=== PATIENT | male | born 1955 | race Caucasian/White ===

== ENCOUNTER 2018-10-23 14:37 | Outpatient (CLI) | payer OTHER ==
--- NOTE | 2018-10-23 15:44 | RAD ---
PA AND LATERAL CHEST: INDICATIONS: History of cough. COMPARISON: 05/03/2005 FINDINGS: The cardiac silhouette remains at the upper limits of normal. No definite air space consolidation or pleural effusion is evident. No acute osseous abnormality is noted. IMPRESSION: No definite acute cardiopulmonary abnormality. POS: [facility]
== END 2018-10-23 14:38 | disposition home or self-care (01) ==
LOC: RAD-FRANK 14:37
PROVIDERS: ATTEND Nurse Practitioner Family
DX: R05 Cough (principal)
CPT/HCPCS: 71046

== ENCOUNTER 2020-12-30 12:21 | Outpatient (CLI) | payer MEDICARE | END 2020-12-30 12:22 | disposition home or self-care (01) | LOC: BICULT 12:21 | PROVIDERS: ATTEND Urology | DX: N43.3 Hydrocele, unspecified (principal) | CPT/HCPCS: 76870; 93976 ==

== ENCOUNTER 2022-08-29 10:38 | Outpatient (CLI) | payer MEDICARE | END 2022-08-29 10:39 | disposition home or self-care (01) | LOC: BICULT 10:38 | PROVIDERS: ATTEND Nurse Practitioner Family | DX: R22.1 Localized swelling, mass and lump, neck (principal) | CPT/HCPCS: 76536 ==

== ENCOUNTER 2022-09-11 07:51 | Outpatient (CLI) | payer MEDICARE | END 2022-09-11 07:52 | disposition home or self-care (01) | LOC: BICCT 07:51 | PROVIDERS: ATTEND Nurse Practitioner Family | DX: R22.1 Localized swelling, mass and lump, neck (principal) | CPT/HCPCS: 70491 ==

== ENCOUNTER 2022-11-17 09:59 | Outpatient (CLI) | payer MEDICARE ==
[2022-11-17 11:40] LABS: Hemoglobin 13.2 g/dL (13.5-17.5); Mean Corpuscular HGB CONC 32.4 g/dL (32.0-36.0); Mean Corpuscular Hemoglobin 31.3 pg (27.0-33.0); Mean Corpuscular Volume 96.4 fl (81.2-95.1); Mean Platelet Volume 11.8 fl (7.4-10.4); Platelet Count 191 10x3/uL (150-450); RBC Distribution Width 14.3 % (11.5-14.5); Red Blood Cell (RBC) Count 4.22 10x6/uL (4.32-5.72); White Blood Cell (WBC) Count 5.7 10x3/uL (3.5-10.5)
[2022-11-17 11:43] LABS: Anion Gap 15 mmol/L (10-20); BUN (Urea Nitrogen) 14 mg/dL (8.4-25.7); Calc. Creatinine Clearance 0 mL/min (70-130); Calcium 9.5 mg/dL (7.8-10.44); Carbon Dioxide 23 mmol/L (23-31); Chloride 109 mmol/L (98-107); Estimated GFR 98; Glucose 98 mg/dL (80-115); Potassium 4.5 mmol/L (3.5-5.1); Sodium 142 mmol/L (136-145)
== END 2022-11-17 10:00 | disposition home or self-care (01) ==
LOC: LABBT 09:59
PROVIDERS: ATTEND Oral & Maxillofacial Surgery
DX: Z01.818 Encounter for other preprocedural examination (principal)
CPT/HCPCS: 80048; 85027; 93005; 93010

== ENCOUNTER 2022-11-22 05:56 | Day surgery (SDC) | payer MEDICARE ==
[2022-11-20 12:41] VITALS: BMI 35.9
[2022-11-22] MEDS ORDERED: Lidocaine 1% (PF) 30 ML VIAL ONE (06:26)
[2022-11-22] MEDS ORDERED: Chlorhexidine Gluconate 15 ML UDCUP SSP ONE ×2 (06:26→07:50)
[2022-11-22] MEDS ORDERED: Hydrocortisone 1% Cream 30 GM TUBE ONE (06:26)
[2022-11-22] MEDS ORDERED: EPINEPHrine 1 MG/ML AMP ONE (06:26)
[2022-11-22] MEDS ORDERED: fentaNYL PF 100 MCG/2 ML SYRINGE ONE (06:36)
[2022-11-22] MEDS ORDERED: Dexmedetomidine 200 MCG/2 ML VIAL ONE (06:36)
[2022-11-22] MEDS ORDERED: Dexamethasone 4 mg/ml Vial ONE (06:44)
[2022-11-22] MEDS ORDERED: Clindamycin/D5W 900 mg/50 ml Premix Bag ONE (06:46)
[2022-11-22] MEDS ORDERED: MINERAL OIL/WHITE PETROLATUM 3.5 GM TUBE ONE (07:08)
[2022-11-22] MEDS ORDERED: Oxymetazoline HCl 0.05% (30 ML BOT) ONE (07:08)
[2022-11-22] MEDS ORDERED: ePHEDrine Sulfate 50 MG/10 ML VIAL ONE (07:13)
[2022-11-22] MEDS ORDERED: Phenylephrine 10 MG/ML VIAL ONE (07:13)
[2022-11-22] MEDS ORDERED: Rocuronium Bromide 10 MG/ML (10ML VIAL) ONE (07:13)
[2022-11-22] MEDS ORDERED: Ondansetron PF 4 MG/2 ML Vial ONE (07:13)
[2022-11-22] MEDS ORDERED: PROPOFOL 200 MG/20 ML VIAL ONE (07:13)
[2022-11-22] MEDS ORDERED: Lidocaine 1% PF 5 ML VIAL ONE (07:13)
[2022-11-22] MEDS ORDERED: Bupivacaine/Epinephrine 0.25% 30 ML VIAL ONE (07:50)
[2022-11-22] MEDS ORDERED: SUGAMMADEX SODIUM 200 MG/2 ML VIAL ONE (08:32)
== END 2022-11-22 11:30 | disposition home or self-care (01) ==
LOC: SDC 05:56
PROVIDERS: ATTEND Oral & Maxillofacial Surgery
PROC: 0CDWXZ1 Extraction of Upper Tooth, Multiple, External Approach (ICD-10-PCS; principal; 2022-11-22)
PROC: 0CDXXZ1 Extraction of Lower Tooth, Multiple, External Approach (ICD-10-PCS; 2022-11-22)
PROC: 0NQV0ZZ Repair Left Mandible, Open Approach (ICD-10-PCS; 2022-11-22)
PROC: 0NQR0ZZ Repair Maxilla, Open Approach (ICD-10-PCS; 2022-11-22)
PROC: 0NQT0ZZ Repair Right Mandible, Open Approach (ICD-10-PCS; 2022-11-22)
DX: K08.89 Other specified disorders of teeth and supporting structures (principal); C07 Malignant neoplasm of parotid gland; I10 Essential (primary) hypertension; I25.10 Atherosclerotic heart disease of native coronary artery without angina pectoris; E78.5 Hyperlipidemia, unspecified; I25.2 Old myocardial infarction; M19.90 Unspecified osteoarthritis, unspecified site; F17.210 Nicotine dependence, cigarettes, uncomplicated; Z86.14 Personal history of Methicillin resistant Staphylococcus aureus infection; Z79.82 Long term (current) use of aspirin; Z79.899 Other long term (current) drug therapy; Z95.5 Presence of coronary angioplasty implant and graft
CPT/HCPCS: J0171; J1100; J2001; J2370; J2405; J2704; J3490